=== PATIENT | male | born 1945 | race Caucasian/White ===

== ENCOUNTER 2020-04-07 18:25 | Emergency (ER) | payer MEDICARE, OTHER ==
[2020-04-07] MEDS ORDERED: Lidocaine 1% with EPINEPHrine 1:100,000 50 ML MDV SUBCUT ONE (19:59)
[2020-04-07] MEDS ORDERED: Bacitracin Oint 1 GM U/D Packet TOP ONE (19:59)
--- NOTE | 2020-04-07 20:42 | EDM.PDOC ---
ED HPI GENERAL MEDICAL PROBLEM - General Chief Complaint: Laceration Stated Complaint: LEFT POINTER FINGER Time Seen by Provider: 04/07/20 19:36 Source of Information: Reports: Patient History Limitations: Reports: No Limitations - History of Present Illness INITIAL COMMENTS - FREE TEXT/NARRATIVE: 74 yo male was sharpening knife and lacerated left 2nd digit. He did have bleeding controlled on arrival. he is up to date on tetanus status. left 1st finger Pain Score (Numeric/FACES): 3 - Related Data Allergies Allergy/AdvReac Type Severity Reaction Status Date / Time Sulfa (Sulfonamide Allergy Hives Verified 04/07/20 19:48 Antibiotics) Home Meds: Home Meds Mesalamine [Delzicol] 400 mg PO TID 04/07/20 [History] Past Medical History HEENT History: Reports: Impaired Vision, Other (See Below) Other HEENT History: glasses Gastrointestinal History: Reports: Diverticulosis, Other (See Below) Other Gastrointestinal History: ulcerative colitis Neurological History: Reports: Concussion Psychiatric History: Reports: Depression - Infectious Disease History Infectious Disease History: Reports: Chicken Pox, Measles, Mumps Social & Family History - Tobacco Use Smoking Status *Q: Never Smoker - Caffeine Use Caffeine Use: Reports: Coffee - Recreational Drug Use Recreational Drug Use: No ED ROS GENERAL - Review of Systems Review Of Systems: See Below Constitutional: Denies: Fever, Chills Respiratory: Denies: Shortness of Breath, Wheezing Cardiovascular: Denies: Chest Pain GI/Abdominal: Denies: Abdominal Pain ED EXAM, SKIN/RASH Exam: See Below Exam Limited By: No Limitations General Appearance: Alert, WD/WN Respiratory/Chest: No Respiratory Distress Skin: Other (finger laceration) ED SKIN PROCEDURES - Laceration/Wound Repair Left Anterior Lateral Digit - 2nd (Index) Appearance: Superficial, Subcutaneous Distal NVT: Neuro & Vascular Intact, No Tendon Injury Anesthetic Type: Local Local Anesthesia - Lidocaine (Xylocaine): 1% with EPI Local Anesthetic Volume: 5cc Skin Prep: Chlorhexidine (Hibiciens), Saline, Sterile Drape Saline Irrigation (cc's): 200 Exploration/Debridement/Repair: Wound Explored, In a Bloodless Field, Explored to Base, No Foreign Material Found Closed with: Sutures Lac/Wound length In cm: 5 Suture Size: 4-0 # of Sutures: 11 Suture Type: Nylon, Interrupted, Simple Course - Vital Signs Last Recorded V/S: Last Vital Signs Temp 36.2 C 04/07/20 19:50 Pulse 50 L 04/07/20 19:50 Resp 16 04/07/20 19:50 BP 145/74 H 04/07/20 19:50 Pulse Ox 97 04/07/20 19:50 - Orders/Labs/Meds Meds: Medications Discontinued Medications Generic Name Dose Route Start Last Admin Trade Name Chavez PRN Reason Stop Dose Admin Bacitracin 1 dose 04/07/20 19:59 04/07/20 20:36 Bacitracin Oint 1 Gm TOP 04/07/20 20:00 1 dose ONETIME ONE Administration Lidocaine/Epinephrine 5 ml 04/07/20 19:59 04/07/20 20:35 Xylocaine 1% With Epinephrine 1:100,000 SUBCUT 04/07/20 20:00 5 ml ONETIME ONE Administration Departure - Departure Time of Disposition: 20:40 Disposition: Home, Self-Care 01 Condition: Good Clinical Impression: Laceration - Discharge Information *PRESCRIPTION DRUG MONITORING PROGRAM REVIEWED*: Not Applicable *COPY OF PRESCRIPTION DRUG MONITORING REPORT IN PATIENT NARGIS: Not Applicable Instructions: Laceration Care, Adult, [id number] Referrals: Wayne Henry MD [Primary Care Provider] - Forms: ED Department Discharge Additional Instructions: sutures out in 7-9 days wash with warm soapy water pat dry observe for signs of infection: fire engine red, increase in pain, purulent drainage Sepsis Event Note (ED) - Evaluation Sepsis Screening Result: No Definite Risk - Focused Exam Vital Signs: Vital Signs Temp Pulse Resp BP Pulse Ox 04/07/20 19:50 36.2 C 50 L 16 145/74 H 97 04/07/20 19:26 36.2 C 50 L 16 145/74 H 97
== END 2020-04-07 20:56 | disposition home or self-care (01) ==
LOC: JP.ED 18:25
DX: S61.211A Laceration without foreign body of left index finger without damage to nail, initial encounter (principal); Z88.2 Allergy status to sulfonamides; W26.0XXA Contact with knife, initial encounter
CPT/HCPCS: 12002; 99282

== ENCOUNTER 2023-03-21 15:33 | Emergency (ER) | payer MEDICARE, OTHER | END 2023-03-21 18:13 | disposition home or self-care (01) | LOC: JP.ED 15:33 | DX: H66.002 Acute suppurative otitis media without spontaneous rupture of ear drum, left ear (principal); Z88.2 Allergy status to sulfonamides | CPT/HCPCS: 99283 ==